=== PATIENT | female | born 1945 | race Caucasian/White ===

== ENCOUNTER 2019-08-31 08:55 | Day surgery (SDC) | payer OTHER ==
--- NOTE | 2019-08-30 14:04 | RAD REPORT ---
EXAM DESCRIPTION: RAD - Chest Pa And Lat (2 Views) - 08/30/2019 1:55 pm CLINICAL HISTORY: PRE-OP Chest pain. COMPARISON: Chest Pa And Lat (2 Views) dated 08/20/2017 FINDINGS: The lungs are clear. The heart is upper limit of normal in size. No displaced fractures. IMPRESSION: No acute or concerning finding suspected.
[2019-08-30 14:30] LABS: Absolute Lymphocytes (CBC) 1.3 K/uL (0.7-4.9); Basophils % 0.5 % (0-1.3); Hematocrit 40.6 % (36.0-45.0); Lymphocytes % 19.6 % (15.3-44.8); MPV 9.4 fL (7.6-11.3); RBC Red Blood Cell Count 4.31 M/uL (3.86-4.86)
[2019-08-30 14:41] LABS: Potassium 3.7 mmol/L (3.5-5.1)
--- NOTE | 2019-08-30 15:52 | EKG ---
Test Date: 2019-08-30 Test Time: 13:31:04 Sewage Plant Operator: ADAN MEASUREMENT RESULTS: Intervals: Rate: 65 ID: [id number] QRSD: 90 QT: 408 QTc: 424 [place]: P: 51 ID: [id number] QRS: 65 T: 56 INTERPRETIVE STATEMENTS: Normal sinus rhythm Cannot rule out Anterior infarct, age undetermined Abnormal ECG Compared to ECG 08/20/2017 14:11:18 Sinus bradycardia no longer present Myocardial infarct finding still present Electronically Signed On 08-30-19 15:51:18 ORTHODONTIC LABORATORY TECHNICIAN by Jose Coffey
[2019-08-31] MEDS ORDERED: Ringers Lactate 1,000 ML IV ONE (09:15)
[2019-08-31] MEDS ORDERED: propofoL 200 MG/20 ML VIAL IV ONE (11:54)
[2019-08-31] MEDS ORDERED: MIDAZOLAM HCL 2 MG/2 ML INJ ONE (11:55)
[2019-08-31] MEDS ORDERED: FENTANYL CITR 100 MCG/2 ML ONE (11:55)
[2019-08-31] MEDS ORDERED: LIDOCAINE 2% MPF 5 ML VIAL ONE (11:55)
[2019-08-31] MEDS ORDERED: ONDANSETRON 4 MG/2 ML VIAL ONE (12:04)
[2019-08-31] MEDS ORDERED: CEFAZOLIN/SWI 1gm 1 GM/10 ML SYR ONE (12:18)
--- NOTE | 2019-08-31 13:13 | P.BOP ---
Preoperative diagnosis: hyperpigmentated assymetrical in shape and color skin mass Postoperative diagnosis: same Primary procedure: Wide excision of hyperpigmentated skin mass with frozen 2x2cm It Teacher: Yaz Ernandez) Estimated blood loss: <10cc Specimen: mass Findings: Margins free of tumor Anesthesia: General Transferred to: Recovery Room Condition: Good
[2019-08-31] MEDS ORDERED: NS 0.9% VIAL 10 ML ONE (13:19)
[2019-08-31] MEDS ORDERED: EPHEDRINE SULF 50 MG/ML VIAL ONE (13:19)
[2019-08-31] MEDS ORDERED: KETOROLAC 30 MG/ML INJ ONE (13:22)
[2019-08-31 15:10] VITALS: BP 121/83; TEMP 97.6; O2SAT 95
--- NOTE | 2019-09-03 00:24 | OP ---
Date of Procedure: 09/02/2019 Surgeon: Ross Schumacher MD Facilities Maintenance Worker: Yaz Chavez. Preoperative Diagnosis: Hyperpigmented asymmetrical in shape and color skin mass with ulceration. Postoperative Diagnosis: Hyperpigmented asymmetrical in shape and color skin mass with ulceration. Procedure: Wide excision of hyperpigmented skin mass with frozen section 2 x 2 cm. Findings: Hyperpigmented mass, margin free of tumor. A permanent section will be done. We do not s ee any evidence of cancer yet. Anesthesia: General plus local. Indications: This is a case of a 74-year-old patient, comes with a new fast growing and changing in cold lesion over the skin area. She cannot rule out a cancer in that region. It is changing in size and color fast. It is located in her back. She wants that excised with frozen section because she does not want to have surgeries neither. So, we offered her wide excision under frozen section with benefits, alternatives, and risks including, but not limited to infection, bleeding, damage to adjace nt structures, anesthesia complication, recurrence, NC, and even . She also understands this ma y not relieve any of her symptoms. She might need more than one surgical intervention. The area of concern was marked by me and the patient in the holding room. Description Of Procedure: Patient was brought to the operating room, placed in a supine position. A nesthesia was done without complication. The patient was placed in lateral decubitus position with p norbert protection. The back area was prepped and draped in a sterile fashion. A wedge incision was m bettye in the skin after applying local anesthetic with gross negative margins. Sent to the pathologist who confirmed the lesion with the specimen and margins free of tumor. This needed more time to do t he permanent section. So far, I did not see any evidence of cancer. So, the area was closed with 3- 0 chromic stitches. This was after hemostasis and irrigation. Patient tolerated the procedure well. Patient was sent to recovery in stable condition. BENJAMIN/TARA Voice ID: [id number] Report ID: [id number]
--- NOTE | 2019-09-03 04:47 | OP ---
Surgeon: Ross Schumacher MD Diagnosis: Hyperpigmented asymmetrical in shape and color skin back mass. Procedure: Wide excision of skin mass. Disposition: Home. Activity: As tolerated. No heavy lifting. Followup: In my office in 1 week. Call for appointment at [phone]. Discharge Instructions: Keep area dry for 48 hours, then may shower. Medications: See orders. BENJAMIN/TARA Voice ID: [id number] Report ID: [id number]
== END 2019-08-31 14:55 | disposition home or self-care (01) ==
LOC: OR 08:55
PROVIDERS: ATTEND Surgery
PROC: 0HB6XZZ Excision of Back Skin, External Approach (ICD-10-PCS; principal; 2019-08-31 11:15)
DX: L82.1 Other seborrheic keratosis (principal); I10 Essential (primary) hypertension; K21.9 Gastro-esophageal reflux disease without esophagitis; E07.9 Disorder of thyroid, unspecified; E78.00 Pure hypercholesterolemia, unspecified; Z80.8 Family history of malignant neoplasm of other organs or systems; Z82.49 Family history of ischemic heart disease and other diseases of the circulatory system
CPT/HCPCS: 93005; 85025; 80048; 36415; 88331; 88332; 88305; 71046; 11402; J2704; J3010; J0690; J7120; J2405; J2250